=== PATIENT | male | born 1980 ===

== ENCOUNTER 2022-01-08 07:06 | Emergency (ER) | payer OTHER ==
[~2022-01-08] VITALS: Ht 170.2 cm; Wt 74.8 kg
[~2022-01-08 07:06] MED LIST: FAMO20 PO; IBUP800 PO; Naprosyn500 MG PO; RXHYD5325 PO; SUCR1 PO; Zoloft25 MG PO
== END 2022-01-08 09:36 | disposition home or self-care (01) ==
LOC: ER 07:06
DX: S67.02XA Crushing injury of left thumb, initial encounter (principal); S61.012A Laceration without foreign body of left thumb without damage to nail, initial encounter; W31.9XXA Contact with unspecified machinery, initial encounter
CPT/HCPCS: 12001; 73140; 99283-25